=== PATIENT | male | born 1965 | race Caucasian/White ===

== ENCOUNTER 2016-03-19 12:50 | Emergency (ER) | payer OTHER ==
[2016-03-19 13:07] VITALS: RESP 20
[2016-03-19] MEDS ORDERED: IPRATROPIUM/ALBUTEROL 3 ML DEYVIAL IH ONE ×3 (14:06→14:38)
--- NOTE | 2016-03-19 14:11 | UCPHY ---
H & P Time Seen by Provider: 03/19/16 13:52 Patient Type: New HPI/ROS: This patient presents with a chief complaint of cough, wheezing and subjective fever which began 3 or 4 days ago with symptoms of a cold. He had wheezing once when he was in 2nd grade when he also had a pneumothorax. He has minimal sore throat, minimal congestion and no ear pain. His chest feels tight but there is no pleuritic chest pain and his shortness of breath is minimal. REVIEW OF SYSTEMS: Constitutional: Fatigue, subjective fever, chills Eyes: No complaints ENT: Minimal sore throat when coughing, mild nasal congestion, no ear pain Respiratory: Cough, wheezing, mild shortness of breath Cardiac: Chest tightness Gastrointestinal: Not addressed Genitourinary: Not addressed Musculoskeletal: Myalgias Skin: No rash Neurological: Mild headache Smoking Status: Never smoked Physical Exam: GENERAL: Well-appearing, well-nourished and in no acute distress. HEAD: Atraumatic, normocephalic. EYES: sclera anicteric, conjunctiva are normal. ENT: TMs normal, nares patent, oropharynx clear without exudates. Moist mucous membranes. NECK: Normal range of motion, supple without lymphadenopathy or JVD. No tenderness LUNGS: There are mild inspiratory and expiratory wheezes, some rhonchi, no respiratory distress HEART: Regular rate and rhythm EXTREMITIES: Normal range of motion, NEUROLOGICAL: Cranial nerves II through XII grossly intact. Normal speech, normal gait. PSYCH: Normal mood, normal affect. SKIN: Warm, dry, normal turgor, no visible rashes or lesions. Constitutional: Initial Vital Signs Temperature (C) 37.4 C 03/19/16 13:02 Heart Rate 90 03/19/16 13:02 Respiratory Rate 20 03/19/16 13:02 Blood Pressure 144/81 H 03/19/16 13:02 O2 Sat (%) 94 03/19/16 13:02 O2 Delivery Mode Room Air Allergies/Adverse Reactions: No Known Allergies Allergy (Unverified 03/19/16 13:01) Home Medications: Medication Instructions Recorded Albuterol [Albuterol HFA 8 gm] 2 puffs IH QID #1 mdi 03/19/16 Synthroid 03/19/16 Zocor 03/19/16 predniSONE 20 mg PO DAILY #12 tab 03/19/16 Medical Decision Making ED Course/Re-evaluation: The patient was given a DuoNeb after which she was feeling significantly improved and was breathing more easily. Re-examination reveals mild changes in his breath sounds with decreased wheezing and freer air movement. At 2:35 a.m. he was given a 2nd DuoNeb and 60 mg of prednisone orally. After the updraft the patient noticed additional improvement in both his breathing and coughing. Re-examination revealed much free air air movement although the wheezing persisted. Differential Diagnosis: I believe that this patient has bronchitis associated with bronchospasm and that the illness is viral and that antibiotics are not indicated. I do not believe a chest x-ray will show pneumonia. I believe that this patient will recover without incident with an albuterol inhaler and prednisone. - Data Points Medications Given: Discontinued Medications Albuterol/Ipratropium (Duoneb) 3 ml IH EDNOW ONE Stop: 03/19/16 14:07 Last Admin: 03/19/16 14:12 Dose: 3 ml Albuterol/Ipratropium (Duoneb) 3 ml IH EDNOW ONE Stop: 03/19/16 14:39 Last Admin: 03/19/16 14:40 Dose: 3 ml Dexamethasone (Decadron) 12 mg PO EDNOW ONE Stop: 03/19/16 14:26 Last Admin: 03/19/16 14:41 Dose: Not Given Prednisone (Prednisone) 60 mg PO EDNOW ONE Stop: 03/19/16 14:26 Last Admin: 03/19/16 14:40 Dose: 60 mg Departure - Departure Disposition: Home, Routine, Self-Care Clinical Impression: Acute bronchitis with bronchospasm Condition: Good Instructions: Acute Bronchitis (ED), Bronchospasm (ED) Additional Instructions: Use your inhaler at least 4 times daily. It is safe to use it every 2 hours if you feel that the wheezing is worse or if you are having a coughing fit. If you feel that your symptoms are worsening in any way you should return. Of particular concern would be increased shortness of breath, sharp chest pain or fever Adult Pain & Fever Control: We recommend Acetaminophen (Tylenol) and Ibuprofen (Motrin, Advil) for pain and fever control. When fever is high or pain severe, both drugs can be used at the same time, but at different intervals. Please note the time differences. Your dose is: Acetaminophen [650]mg every 4 to 6 hours ibuprofen [600]mg every [6] hours with food OR naproxen Sodium (Aleve) [440]mg every 12 hours. Note: do not take Acetaminophen with Hydrocodone (Vicodin, Lortab) or Oxycodone (Percocet). These medications also contain Acetaminophen. No more than 3000 mg of Acetaminophen should be taken in 24 hours (for an adult) . The maximal dose of ibuprofen that it is safe in a 24-hour period is 2400 mg. You may take 400 mg every 4 hours, 600 mg every 6 hours or 800 mg every 8 hours safely.. Referrals: Dev Cormier MD [Primary Care Provider] - As per Instructions Prescriptions: Albuterol [Albuterol HFA 8 gm] 2 puffs IH QID #1 mdi predniSONE 20 mg PO DAILY #12 tab - PQRS PQRS Measurement: Not applicable
[2016-03-19] MEDS ORDERED: predniSONE 20 MG TAB PO ONE (14:25)
[2016-03-19] MEDS ORDERED: DEXAMETHASONE 4 MG TAB PO ONE (14:25)
[2016-03-19] MEDS ORDERED: IPRATROPIUM/ALBUTEROL 3 ML DEYVIAL ONE (14:37)
[2016-03-19 14:52] VITALS: BP 138/73; PULSE 81; TEMP 98.6; O2SAT 95
== END 2016-03-19 14:56 | disposition home or self-care (01) ==
LOC: CED 12:50
DX: J20.9 Acute bronchitis, unspecified (principal)
CPT/HCPCS: 99203-PO; G0463-PO